=== PATIENT | female | born 1995 | race Caucasian/White ===

== ENCOUNTER 2020-09-02 10:32 | Emergency (ER) | payer MEDICAID ==
[~2020-09-02] VITALS: Ht 167.6 cm; Wt 66.7 kg
[2020-09-02 10:36] VITALS: BP 108/61
--- NOTE | 2020-09-02 10:44 | NUR ---
Patient ambulated to bed 12. RN evaluating the patient at bedside.
--- NOTE | 2020-09-02 11:50 | NUR ---
Dr. Kaufman is evaluating patient at bedside.
--- NOTE | 2020-09-02 12:07 | NUR ---
25/F presents to ED with c/o abdominal pain. Patient states she was at work this morning and began experiencing lower abdominal pain, lower abdomen is tender to touch. Patient states she is two months , patient is A0, states she is currently taking vitamins. Patient denies taking anything for pain at home, denies nausea, vomiting, dysuria and hematuria.
[2020-09-02 14:08] LABS: APPEARANCE,URINE CLEAR (CLEAR); BILIRUBIN,URINE NEGATIVE (NEGATIVE); BLOOD, URINE NEGATIVE (NEGATIVE); LEUKOCYTE ESTERASE ,URINE NEGATIVE (NEGATIVE); NITRITE, URINE NEGATIVE (NEGATIVE); PH,URINE 6.5 (5.0-9.0); UGLUCOSE NEGATIVE (NEGATIVE)
[2020-09-02 14:13] LABS: COLOR,URINE YELLOW (YELLOW)
[2020-09-02] MEDS ORDERED: ACET-10509 PO (14:27)
[2020-09-02 14:36] VITALS: BP 104/56
== END 2020-09-02 14:36 | disposition home or self-care (01) ==
LOC: MED 10:32
DX: O20.0 Threatened abortion (principal); Z3A.08 8 weeks gestation of pregnancy; Z79.899 Other long term (current) drug therapy
CPT/HCPCS: 81003; 81025; 99284

== ENCOUNTER 2021-02-28 11:55 | Observation (INO) | payer OTHER, SELFPAY ==
[~2021-02-28] VITALS: Ht 158 cm; Wt 74.8 kg
[~2021-02-28 11:55] MED LIST: ACET-10509 PO
[2021-02-28] MEDS ORDERED: PRETAB PO (12:41)
[2021-02-28 14:34] VITALS: BP 110/60
== END 2021-02-28 15:55 | disposition home or self-care (01) ==
LOC: MLD 11:55
PROVIDERS: ADMIT Obstetrics & Gynecology; ATTEND Obstetrics & Gynecology
DX: O26.893 Other specified pregnancy related conditions, third trimester (principal); R10.9 Unspecified abdominal pain; O99.891 Other specified diseases and conditions complicating pregnancy; M54.9 Dorsalgia, unspecified; Z3A.36 36 weeks gestation of pregnancy
CPT/HCPCS: 59025; 76819; 81000; 87426; Q0092; G0378

== ENCOUNTER 2021-06-15 23:36 | Emergency (ER) | payer OTHER, SELFPAY ==
[~2021-06-15] VITALS: Ht 152.4 cm; Wt 75.3 kg
[~2021-06-15 23:36] MED LIST changes: -ACET-10509 PO; +PRETAB PO
[2021-06-16 00:04] VITALS: BP 116/57
--- NOTE | 2021-06-16 00:11 | NUR ---
PT TAKEN TO LOBBY
--- NOTE | 2021-06-16 00:19 | NUR ---
C/O CP, PAIN IN BACK OF HEAD, X 1 DAY. PT REPORTS TAKING TYLENOL WITH NO RELIEF. PT REPORTS EXPERIENCING THIS 2X IN THE PAST. PT REPORTS NAUSEA, DENIES V/D. PMEDHX:DENIES NKDA
--- NOTE | 2021-06-16 00:55 | NUR ---
PT AMBULATED TO BED 02.
[2021-06-16] MEDS: IBUPROFEN 800 MG TAB PO ONE (01:33)
[2021-06-16] MEDS: PANTOPRAZOLE 40 MG TABEC PO ONE (01:34)
[2021-06-16] MEDS ORDERED: PANT40EC PO (03:18)
[2021-06-16 03:24] VITALS: BP 115/58
--- NOTE | 2021-06-16 03:27 | NUR ---
Patient discharged with v/s stable. Written and verbal after care instructions given and explained. Patient alert, oriented and verbalized understanding of instructions. Ambulatory with steady gait. All questions addressed prior to discharge. ID band removed. Patient advised to follow up with PMD. Rx of PANTOPRAZOLE SODIUM given. Patient educated on indication of medication including possible reaction and side effects. Opportunity to ask questions provided and answered. VSS, A/OX4, AMBULATORY, UNLABORED BREATHING, AND CALM DEMEANOR.
== END 2021-06-16 03:27 | disposition home or self-care (01) ==
LOC: MED 23:36
DX: R07.89 Other chest pain (principal); Z79.899 Other long term (current) drug therapy
CPT/HCPCS: 71045; 81025; 93005; 99283

== ENCOUNTER 2021-11-19 13:35 | Emergency (ER) | payer MEDICAID, OTHER ==
[~2021-11-19] VITALS: Ht 154.4 cm; Wt 72.2 kg
[~2021-11-19 13:35] MED LIST changes: +PANT40EC PO
[2021-11-19 13:56] VITALS: BP 108/68
--- NOTE | 2021-11-19 14:00 | NUR ---
26 y/o female bib self with her 2 children, c/o headache, nasal congestion, rhinitis, diarrhea for the past 8 months, comes and goes. denies any visual disturbances or phonophobia photophobia no neck stiffness, fever or head injuries. pt states she has also been having runny nose. pt denies any associated cough, vomiting, fever, body aches, chills. skin is pink/warm/dry. a&o x4 with even and steady gait. lungs clear bl, heart rate even and regular. vss. patient positioned for comfort. hob elevated. bed down. ermd made aware of pt. pmh: denies nka med: tylenol (mild relief)
--- NOTE | 2021-11-19 14:25 | NUR ---
Jamin Pappas at bedside for evaluation
--- NOTE | 2021-11-19 14:30 | NUR ---
26 y/o female c/o headache x yesterday. Pain reported at 8/10 throbbing, states she has prescription glasses but does not use. Has had recurring headaches x 8 months. Takes Tylenol at home which provides temporary relief. Also, c/o cough, sore throat and fever x yesterday, has 2 small children at home who have similar symptoms. PMH: denies NKA
[2021-11-19] MEDS ORDERED: IBUP-2213 PO (14:55)
[2021-11-19] MEDS ORDERED: LORA10SG1 PO (14:55)
[2021-11-19] MEDS ORDERED: FLONAS NS (14:55)
[2021-11-19 15:20] VITALS: BP 108/68
--- NOTE | 2021-11-19 15:20 | NUR ---
Patient discharged with v/s stable. Written and verbal after care instructions about general headache, allergic rhinitis given and explained. Patient alert, oriented and verbalized understanding of instructions. Ambulatory with steady gait. All questions addressed prior to discharge. ID band removed. Patient advised to follow up with PMD. Rx of Ibuprofen, Claritin, Flonase given. Patient educated on indication of medication including possible reaction and side effects. Opportunity to ask questions provided and answered.
== END 2021-11-19 15:20 | disposition home or self-care (01) ==
LOC: MED 13:35
DX: J30.9 Allergic rhinitis, unspecified (principal); R51.9 Headache, unspecified
CPT/HCPCS: 99283

== ENCOUNTER 2022-06-08 16:49 | Emergency (ER) | payer MEDICAID ==
[~2022-06-08] VITALS: Ht 150.9 cm; Wt 71.7 kg
[~2022-06-08 16:49] MED LIST changes: +FLONAS NS; +IBUP-2213 PO; +LORA10SG1 PO
--- NOTE | 2022-06-08 17:33 | NUR ---
COVID SWABS DONE
[2022-06-08 17:42] VITALS: BP 129/96
--- NOTE | 2022-06-08 17:50 | NUR ---
BIB SELF C/O COUGH, RUNNY NOSE, CAMERON, SORE THROAT, X 3 DAYS AND C/O DIARRHEA X TODAY.
[2022-06-08] MEDS ORDERED: IBUP-1842 PO (18:42)
[2022-06-08] MEDS ORDERED: BPM/118S34 PO (18:42)
[2022-06-08 19:37] VITALS: BP 129/96
--- NOTE | 2022-06-08 19:37 | NUR ---
Patient discharged. Written and verbal after care instructions given and explained. Patient alert, oriented and verbalized understanding of instructions. Ambulatory with steady gait. All questions addressed prior to discharge. ID band removed. Patient advised to follow up with PMD. Rx of motrin and Brompheniramin/Phenylephrine given. Patient educated on indication of medication including possible reaction and side effects. Opportunity to ask questions provided and answered.
--- NOTE | 2022-06-08 20:25 | NUR ---
Note undone in EDM - 06/08/22 at 2024 by MEDSARAHY Patient discharged. Written and verbal after care instructions given and explained. Patient alert, oriented and verbalized understanding of instructions. Ambulatory with steady gait. All questions addressed prior to discharge. ID band removed. Patient advised to follow up with PMD. Rx of motrin and Brompheniramin/Phenylephrine given. Patient educated on indication of medication including possible reaction and side effects. Opportunity to ask questions provided and answered.
== END 2022-06-08 19:37 | disposition home or self-care (01) ==
LOC: MED 16:49
DX: B34.9 Viral infection, unspecified (principal); Z20.822 Contact with and (suspected) exposure to COVID-19; Z79.899 Other long term (current) drug therapy
CPT/HCPCS: 81025; 99283

== ENCOUNTER 2022-08-01 23:10 | Emergency (ER) | payer MEDICAID ==
[~2022-08-01] VITALS: Ht 154.9 cm; Wt 76.7 kg
[~2022-08-01 23:10] MED LIST changes: +BPM/118S34 PO; +IBUP-1842 PO
--- NOTE | 2022-08-02 | NUR ---
COVID-19 and flu swabs collected and sent to lab.
[2022-08-02 00:04] VITALS: BP 119/76
--- NOTE | 2022-08-02 01:53 | NUR ---
PT TAKEN TO BED 7
--- NOTE | 2022-08-02 02:01 | NUR ---
Dr. Aparicio examining patient.
[2022-08-02] MEDS ORDERED: BENZ-300 PO (02:25)
[2022-08-02] MEDS ORDERED: GUAI-791 PO (02:25)
[2022-08-02 02:38] VITALS: BP 119/76
--- NOTE | 2022-08-02 02:38 | NUR ---
Patient discharged with v/s stable. Written and verbal after care instructions given and explained. Patient alert, oriented and verbalized understanding of instructions. Ambulatory with steady gait. All questions addressed prior to discharge. ID band removed. Patient advised to follow up with PMD. Rx of CEPACOL, MUCINEX given. Patient educated on indication of medication including possible reaction and side effects. Opportunity to ask questions provided and answered.
== END 2022-08-02 02:38 | disposition home or self-care (01) ==
LOC: MED 23:10
DX: J06.9 Acute upper respiratory infection, unspecified (principal); Z79.899 Other long term (current) drug therapy
CPT/HCPCS: 99283

== ENCOUNTER 2022-10-15 21:49 | Emergency (ER) | payer MEDICAID ==
[~2022-10-15] VITALS: Ht 157.5 cm; Wt 73.5 kg
[~2022-10-15 21:49] MED LIST changes: +BENZ-300 PO; +GUAI-791 PO
[2022-10-15 22:10] VITALS: BP 112/72; PULSE 56; RESP 16; TEMP 97.6; O2SAT 100
--- NOTE | 2022-10-15 22:19 | NUR ---
TO LOBBY FOLLOWING TRIAGE
--- NOTE | 2022-10-16 01:09 | NUR ---
CALLED TO BED NO ANSWER
--- NOTE | 2022-10-16 01:14 | NUR ---
PATIENT LEFT WITHOUT BEING SEEN BY DR. GIL. NO FURTHER CARE PROVIDED FOR PATIENT.
--- NOTE | 2022-10-16 01:14 | NUR ---
CALLED PATIENTS CELL PHONE, PATIENT LWBS AND IS HOME.
== END 2022-10-16 01:14 | disposition left against medical advice (07) ==
LOC: MED 21:49
DX: R06.02 Shortness of breath (principal); Z53.21 Procedure and treatment not carried out due to patient leaving prior to being seen by health care provider
CPT/HCPCS: 99281

== ENCOUNTER 2022-10-16 00:23 | Emergency (ER) | payer MEDICAID | END 2022-10-16 01:14 | disposition left against medical advice (07) | LOC: MED 00:23 | DX: Z53.21 Procedure and treatment not carried out due to patient leaving prior to being seen by health care provider (principal) ==

== ENCOUNTER 2022-11-16 22:42 | Emergency (ER) | payer MEDICAID ==
[~2022-11-16] VITALS: Ht 152.4 cm; Wt 70.3 kg
[2022-11-16 23:18] VITALS: BP 107/70; PULSE 68; RESP 20; TEMP 97.3; O2SAT 100
[2022-11-17 00:11] LABS: BASOPHILS % (AUTO) 0.5 % (0.0-2.0); EOSINOPHILS # (AUTO) 0.1 K/uL (0-0.4); EOSINOPHILS % (AUTO) 1.6 % (0.0-4.0); HEMATOCRIT 39.5 % (36-48); HEMOGLOBIN 13.2 g/dL (12.0-16.0); LYMPHOCYTES # (AUTO) 2.7 K/uL (2.5-16.5); LYMPHOCYTES % (AUTO) 30.8 % (20.5-51.1); MEAN CORPUSCULAR HEMOGLOBIN 29 pg (27-31); MEAN CORPUSCULAR HGB CONC 34 g/dL (33-37); MEAN CORPUSCULAR VOLUME 87.9 fL (80-94); MONOCYTES # (AUTO) 0.7 K/uL (0.8-1.0); MONOCYTES % (AUTO) 7.7 % (1.7-9.3); NEUTROPHILS # (AUTO) 5.3 K/uL (1.8-7.7); NEUTROPHILS % (AUTO) 59.4 % (42.2-75.2); PLATELET COUNT (AUTO) 194 K/uL (140-450); RED BLOOD CELL COUNT(AUTO) 4.49 MIL/uL (4.20-5.40); RED CELL DISTRIBUTION WIDTH 13.2 % (11.6-13.7); WHITE BLOOD COUNT (AUTO) 8.9 K/uL (4.8-10.8)
[2022-11-17 00:21] LABS: CALCIUM 8.6 mg/dL (8.5-10.1); CARBON DIOXIDE 30.9 mmol/L (21-32); CREATININE 0.9 mg/dL (0.6-1.3); POTASSIUM 3.9 mmol/L (3.5-5.1)
[2022-11-17 01:24] LABS: THYROID STIMULATING HORMONE 3.08 uIU/mL (0.34-3.74)
[2022-11-17] MEDS ORDERED: ACET-11169 PO (01:29)
[2022-11-17 01:38] VITALS: BP 107/70; PULSE 68; RESP 20; TEMP 97.3; O2SAT 100
== END 2022-11-17 01:55 | disposition home or self-care (01) ==
LOC: MED 22:42
DX: R07.9 Chest pain, unspecified (principal); R06.02 Shortness of breath; J02.9 Acute pharyngitis, unspecified; Z79.899 Other long term (current) drug therapy
CPT/HCPCS: 36415; 71045; 80048; 84443; 84484; 85025; 93005; 99285; Q0092

== ENCOUNTER 2023-07-13 10:30 | Emergency (ER) | payer MEDICAID ==
[~2023-07-13] VITALS: Ht 157.5 cm; Wt 75.7 kg
[~2023-07-13 10:30] MED LIST changes: +ACET-11169 PO
[2023-07-13 10:36] VITALS: BP 101/66; PULSE 81; RESP 18; TEMP 98.2; O2SAT 98
[2023-07-13 11:27] LABS: BASOPHILS % (AUTO) 0.6 % (0.0-2.0); EOSINOPHILS # (AUTO) 0.2 K/uL (0-0.4); EOSINOPHILS % (AUTO) 3.2 % (0.0-4.0); HEMOGLOBIN 13.9 g/dL (12.0-16.0); LYMPHOCYTES # (AUTO) 1.6 K/uL (2.5-16.5); LYMPHOCYTES % (AUTO) 24.9 % (20.5-51.1); MEAN CORPUSCULAR HEMOGLOBIN 30 pg (27-31); MEAN CORPUSCULAR HGB CONC 34 g/dL (33-37); MEAN CORPUSCULAR VOLUME 88.1 fL (80-94); MONOCYTES # (AUTO) 0.6 K/uL (0.8-1.0); MONOCYTES % (AUTO) 9.9 % (1.7-9.3); NEUTROPHILS % (AUTO) 61.4 % (42.2-75.2); PLATELET COUNT (AUTO) 183 K/uL (140-450); RED BLOOD CELL COUNT(AUTO) 4.65 MIL/uL (4.20-5.40); RED CELL DISTRIBUTION WIDTH 13.6 % (11.6-13.7); WHITE BLOOD COUNT (AUTO) 6.4 K/uL (4.8-10.8)
[2023-07-13 11:30] LABS: APPEARANCE,URINE CLEAR (CLEAR); BILIRUBIN,URINE NEGATIVE (NEGATIVE); COLOR,URINE YELLOW (YELLOW); LEUKOCYTE ESTERASE ,URINE NEGATIVE (NEGATIVE); NITRITE, URINE NEGATIVE (NEGATIVE); PH,URINE 6.5 (5.0-9.0); PROTEIN,URINE NEGATIVE (NEGATIVE); UGLUCOSE NEGATIVE (NEGATIVE); UROBILINOGEN,URINE 0.2 EU/dL (0.2 - 1)
[2023-07-13 11:34] LABS: BACTERIA,URINE OCCASSIONAL /HPF (None Seen); BLOOD, URINE 1+ (NEGATIVE); RBC,URINE 0-5 /HPF (0-5); SQUAMOUS EPITHELIAL CELL,UR 0-3 (FEW) /LPF (0-3 (FEW)); WBC,URINE 0-5 /HPF (0-5)
[2023-07-13 12:58] VITALS: BP 101/66; PULSE 81; RESP 18; TEMP 98.2; O2SAT 98
== END 2023-07-13 12:58 | disposition home or self-care (01) ==
LOC: MED 10:30
DX: O03.9 Complete or unspecified spontaneous abortion without complication (principal); Z79.899 Other long term (current) drug therapy
CPT/HCPCS: 36415; 81001; 81025; 84702; 85025; 86900; 86901; 99283